=== PATIENT | female | born 1965 | race African-American/Black ===

== ENCOUNTER → 2017-08-17 | Outpatient (CLI) | payer OTHER ==
[~2017-08-17] VITALS: Ht 167.6 cm; Wt 97.7 kg
[2017-08-17] VITALS (8 sets, daily range): BP systolic 99–139; BP diastolic 53–67
[~2017-08-17] MED LIST: HIV MEDICATION PO
== END | disposition home or self-care (01) ==
LOC: IVINF 16:00
DX: D64.9 Anemia, unspecified (principal)
CPT/HCPCS: 36430; 86999; P9016